=== PATIENT | male | born 1990 | race Caucasian/White ===

== ENCOUNTER 2023-06-17 23:26 | Emergency (ER) | payer SELFPAY ==
[~2023-06-17] VITALS: Ht 172.7 cm; Wt 68.0 kg
[2023-06-17 23:34] VITALS: BP 121/76; PULSE 107; RESP 20; TEMP 98.3; O2SAT 98
[2023-06-18] MEDS: MORPHINE SULFATE 4 MG/ML SYR IM ONE (00:43)
[2023-06-18 01:02] VITALS: O2SAT 98
[2023-06-18] MEDS ORDERED: ACET-8905 PO (01:13)
== END 2023-06-18 01:35 | disposition home or self-care (01) ==
LOC: MED 23:26
DX: S93.491A Sprain of other ligament of right ankle, initial encounter (principal); J45.909 Unspecified asthma, uncomplicated; Z79.1 Long term (current) use of non-steroidal anti-inflammatories (NSAID); Z79.899 Other long term (current) drug therapy; X50.1XXA Overexertion from prolonged static or awkward postures, initial encounter; Y93.89 Activity, other specified; Y92.89 Other specified places as the place of occurrence of the external cause; Y99.8 Other external cause status
CPT/HCPCS: 73610; 96372; 99283; J2270